=== PATIENT | male | born 1975 | race Caucasian/White ===

== ENCOUNTER → 2019-04-18 | Outpatient (CLI) | payer OTHER | LOC: COL.RAD 09:45 | DX: S43.431A Superior glenoid labrum lesion of right shoulder, initial encounter (principal) | CPT/HCPCS: A9585; Q9967 ==

== ENCOUNTER → 2022-06-22 | Outpatient (CLI) | payer OTHER | LOC: MHCPAIN 13:03 | DX: M47.812 Spondylosis without myelopathy or radiculopathy, cervical region (principal); M54.18 Radiculopathy, sacral and sacrococcygeal region; M54.12 Radiculopathy, cervical region | CPT/HCPCS: G0463 ==

== ENCOUNTER → 2022-10-27 | Outpatient (CLI) | payer OTHER | LOC: MHCPAIN 08:49 | DX: M47.812 Spondylosis without myelopathy or radiculopathy, cervical region (principal); M54.2 Cervicalgia | CPT/HCPCS: J0461; J0665; J1100 ==

== ENCOUNTER → 2022-11-24 | Outpatient (CLI) | payer OTHER | LOC: MHCPAIN 10:21 | DX: M47.812 Spondylosis without myelopathy or radiculopathy, cervical region (principal); M54.2 Cervicalgia; M25.511 Pain in right shoulder | CPT/HCPCS: J0665 ==

== ENCOUNTER → 2023-01-12 | Outpatient (CLI) | payer OTHER | LOC: COL.RAD 13:31 | DX: G43.709 Chronic migraine without aura, not intractable, without status migrainosus (principal) | CPT/HCPCS: A9575 ==

== ENCOUNTER → 2023-05-31 | Outpatient (CLI) | payer OTHER | LOC: MHCPAIN 10:08 | DX: M47.812 Spondylosis without myelopathy or radiculopathy, cervical region (principal); M48.02 Spinal stenosis, cervical region; M54.81 Occipital neuralgia | CPT/HCPCS: G0463 ==